=== PATIENT | female | born 1950 | race Caucasian/White ===

== ENCOUNTER 2019-08-22 13:19 | Emergency (ER) | payer OTHER ==
[~2019-08-22] VITALS: Ht 160 cm; Wt 79.4 kg
[2019-08-22 13:30] VITALS: BP_SYST 181
[2019-08-22 19:00] VITALS: BP_SYST 149
== END 2019-08-22 19:00 | disposition home or self-care (01) ==
LOC: SED 13:19
DX: K59.00 Constipation, unspecified (principal); K56.609 Unspecified intestinal obstruction, unspecified as to partial versus complete obstruction
CPT/HCPCS: 74018; 99283